=== PATIENT | male | born 1965 | race Caucasian/White ===

== ENCOUNTER 2016-09-23 04:51 | Observation (INO) ==
[2016-09-23] MEDS ORDERED: 0.9 % Sodium Chloride 500 ML IVC ONE (06:23)
[2016-09-23] MEDS ORDERED: *HR* Morphine 2 MG/ML SYRINGE IVP ONE (06:23)
[2016-09-23] MEDS ORDERED: Ondansetron 4 MG/2 ML VIAL IVP ONE (06:23)
[2016-09-23] MEDS ORDERED: Aspirin 81 MG TAB.CHEW PO ONE (06:23)
[2016-09-23 06:45] LABS: Basophils # 0.1 K/mcL (0.0-0.2); Basophils % 0.5 %; Eosinophils # 0.1 K/mcL (0.0-0.6); Eosinophils % 0.6 %; Hematocrit 45.7 % (37.5-50.1); Hemoglobin 15.8 g/dL (12.9-16.9); Immature Granulocytes % 0.4 % (0-4); Lymphocytes # 1.6 K/mcL (0.6-4.6); Lymphocytes % 13.9 %; Mean Corpuscular HGB Conc 34.6 g/dL (31.6-35.5); Mean Corpuscular Hemoglobin 30.7 pg (28.0-33.3); Mean Corpuscular Volume 88.9 fL (83.0-100.0); Mean Platelet Volume 12.6 fL (9.4-12.4); Monocytes # 0.7 K/mcL (0.0-1.3); Monocytes % 5.7 %; Platelet Count 176 K/mcL (140-400); Red Blood Count 5.14 M/mcL (4.19-5.50); Red Cell Distribution Width 12.7 % (11.5-14.5); Segmented Neutrophils % 78.9 %
[2016-09-23 06:50] LABS: Prothrombin Time 10.3 Seconds (9.4-12.1)
[2016-09-23 06:52] LABS: Activated Partial Thrombo Time 30.5 Seconds (26.0-36.0)
--- NOTE | 2016-09-23 06:55 | Emergency Department Note ---
Disposition Clinical Impression: Chest pain, Hypertension Disposition: Admitted As Inpatient Condition: Good Instructions: Chest Pain (ED) Referrals: NO,PCP [Primary Care Provider] - Forms: ED Satisfaction Letter Time of Disposition: 10:20 Chest Pain HPI - General Chief Complaint: ED Chest Pain Stated Complaint: Chest Pain Time Seen by Provider: 09/23/16 05:14 Source: patient Mode of arrival: private vehicle Limitations: no limitations Vital Signs Reviewed: Yes Nursing Notes Reviewed: Yes - History of Present Illness HPI Narrative: 51-year-old male presents to the emergency department complaining of left-sided chest pain. Patient states that this began approximately 2 hours prior to his arrival to the emergency department. Patient states the history of high blood pressure and high cholesterol. He denies any previous cardiac history. He denies any recent illnesses. He states that the pain began in his left chest and feels like a "pressure, like an elephant is sitting on my chest." He denies any dizziness or lightheadedness. He states that the pain began with light activity while he was at work. Pt complaint: chest pain Onset (ago): hour(s) (@ 0300) Duration: constant Onset: during exertion (minimal ) Pain Location: left chest Severity: severe Severity scale (1-10): 9 Quality: heaviness Pain Radiation: RUE Improves with: nothing Worsens with: exertion, inspiration Associated symptoms: Reports: dyspnea. Denies: nausea, vomiting, palpitations, leg swelling Treatments prior to arrival chest pain: none - Related Data Home Medications Medication Instructions Recorded Confirmed Lisinopril [Zestril] 5 mg PO DAILY 09/23/16 09/23/16 Allergies Allergy/AdvReac Type Severity Reaction Status Date / Time No Known Allergies Allergy Verified 09/23/16 08:56 All systems ED: reviewed and negative except as stated. Constitutional: Denies: fever, chills Cardiovascular: Reports: chest pain. Denies: palpitations, dyspnea on exertion , syncope Respiratory: Denies: dyspnea Gastrointestinal: Denies: abdominal pain, nausea, vomiting Musculoskeletal: Reports: myalgia. Denies: back pain, neck pain Integumentary: Denies: rash, abrasion, lesions Neurological: Denies: headache Psychiatric: Denies: anxiety, depression, suicidal thoughts, homicidal thoughts Chest Pain PMH - Past Medical History Medical history: Reports: no medical history Psychiatric history: Reports: no psych history - Social History Smoking Status: Current every day smoker Alcohol use: Reports: none Drug use: Reports: none Physical Exam - General Limitations: no limitations General appearance: alert, in distress - Head Head exam: atraumatic, normocephalic, normal inspection - Eye Eye exam: Present: normal appearance, PERRL - Neck Neck exam: Present: normal inspection, full ROM, trachea midline - Chest Chest inspection: Present: normal inspection, symmetric chest wall rise. Absent : tenderness - Respiratory Respiratory exam: Present: normal lung sounds bilaterally. Absent: respiratory distress, wheezes - Cardiovascular Cardiovascular exam: Present: regular rate, normal rhythm, normal heart sounds - Abdominal Exam Abdominal exam: Present: soft, Non-Tender, normal bowel sounds. Absent: distention, guarding, rebound - Extremities Exam Extremities exam: Present: normal inspection, full ROM, normal capillary refill. Absent: tenderness, pedal edema, calf tenderness - Back Exam Back exam: Present: normal inspection, full ROM. Absent: tenderness - Neurological Exam Neurological exam: Present: alert, oriented X3 - Psychiatric Psychiatric exam: Present: normal affect, normal mood - Skin Skin exam: Present: warm, dry, intact, normal color Course - Consultations Consultation #1: Discussed admission with Dr. Ramirez, she accepts patient for rule out ACS. Time: 09:00 Vital Signs Temperature 0 F L 09/23/16 05:00 Pulse Rate 97 09/23/16 05:00 Respiratory Rate 18 09/23/16 05:00 Blood Pressure 171/115 09/23/16 05:00 O2 Sat by Pulse Oximetry 97 09/23/16 05:00 Temperature 0 F L 09/23/16 05:00 Pulse Rate 83 09/23/16 08:44 Respiratory Rate 18 09/23/16 08:44 Blood Pressure 156/101 09/23/16 08:44 O2 Sat by Pulse Oximetry 100 09/23/16 08:44 Oxygen Delivery Oxygen Delivery Nasal Cannula Chest Pain - Lab Data Lab results reviewed: Yes I reviewed the patient's lab results. Result diagrams: 09/23/16 05:30 09/23/16 05:30 Lab Results 09/23/16 09/23/16 09/23/16 Range/Units 05:30 05:30 05:30 WBC (4.3-11.1) K/mcL RBC (4.19-5.50) M/mcL Hgb (12.9-16.9) g/dL Hct (37.5-50.1) % MCV (83.0-100.0) fL MCH (28.0-33.3) pg MCHC (31.6-35.5) g/dL RDW (11.5-14.5) % Plt Count (140-400) K/mcL MPV (9.4-12.4) fL Immature Gran % (0-4) % Seg Neutrophils % % Lymphocytes % % Monocytes % % Eosinophils % % Basophils % % Neutrophils # (1.6-8.9) K/mcL Lymphocytes # (0.6-4.6) K/mcL Monocytes # (0.0-1.3) K/mcL Eosinophils # (0.0-0.6) K/mcL Basophils # (0.0-0.2) K/mcL PT 10.3 (9.4-12.1) Seconds INR 1.0 APTT 30.5 (26.0-36.0) Seconds D-Dimer 414 (0-500) ng/mLFEU Sodium 141 (136-145) mEq/L Potassium 3.9 (3.5-4.5) mEq/L Chloride 107 (98-109) mEq/L Carbon Dioxide 26 (19-29) mEq/L BUN 12 (8-26) mg/dL Creatinine 1.12 (0.72-1.25) mg/dL Est GFR ( Amer) > 60 (> 60) Est GFR (Non-Af Amer) > 60 (> 60) BUN/Creatinine Ratio 11 (6-26) Glucose 118 H (70-99) mg/dL Calculated Osmolality 293 (280-300) Calcium 9.4 (8.6-10.8) mg/dL Total Bilirubin 0.5 (0.2-1.2) mg/dL Direct Bilirubin 0.2 (0.0-0.5) mg/dL Indirect Bilirubin 0.3 (0.0-1.2) mg/dL AST 21 (5-34) Units/L ALT 33 (0-55) Units/L Alkaline Phosphatase 95 (38-126) Units/L Troponin I (0-0.03) ng/mL B-Natriuretic Peptide 34 (0-100) pg/mL Serum Total Protein 7.1 (6.0-8.3) g/dL Albumin 3.8 (3.5-5.0) g/dL Globulin 3.3 (2.4-3.5) g/dL Albumin/Globulin Ratio 1.2 (1.1-2.2) Amylase 44 (25-125) Units/L Lipase 23 (8-78) Units/L 09/23/16 09/23/16 Range/Units 05:30 05:30 WBC 11.5 H (4.3-11.1) K/mcL RBC 5.14 (4.19-5.50) M/mcL Hgb 15.8 (12.9-16.9) g/dL Hct 45.7 (37.5-50.1) % MCV 88.9 (83.0-100.0) fL MCH 30.7 (28.0-33.3) pg MCHC 34.6 (31.6-35.5) g/dL RDW 12.7 (11.5-14.5) % Plt Count 176 (140-400) K/mcL MPV 12.6 H (9.4-12.4) fL Immature Gran % 0.4 (0-4) % Seg Neutrophils % 78.9 % Lymphocytes % 13.9 % Monocytes % 5.7 % Eosinophils % 0.6 % Basophils % 0.5 % Neutrophils # 9.0 H (1.6-8.9) K/mcL Lymphocytes # 1.6 (0.6-4.6) K/mcL Monocytes # 0.7 (0.0-1.3) K/mcL Eosinophils # 0.1 (0.0-0.6) K/mcL Basophils # 0.1 (0.0-0.2) K/mcL PT (9.4-12.1) Seconds INR APTT (26.0-36.0) Seconds D-Dimer (0-500) ng/mLFEU Sodium (136-145) mEq/L Potassium (3.5-4.5) mEq/L Chloride (98-109) mEq/L Carbon Dioxide (19-29) mEq/L BUN (8-26) mg/dL Creatinine (0.72-1.25) mg/dL Est GFR ( Amer) (> 60) Est GFR (Non-Af Amer) (> 60) BUN/Creatinine Ratio (6-26) Glucose (70-99) mg/dL Calculated Osmolality (280-300) Calcium (8.6-10.8) mg/dL Total Bilirubin (0.2-1.2) mg/dL Direct Bilirubin (0.0-0.5) mg/dL Indirect Bilirubin (0.0-1.2) mg/dL AST (5-34) Units/L ALT (0-55) Units/L Alkaline Phosphatase (38-126) Units/L Troponin I 0.01 (0-0.03) ng/mL B-Natriuretic Peptide (0-100) pg/mL Serum Total Protein (6.0-8.3) g/dL Albumin (3.5-5.0) g/dL Globulin (2.4-3.5) g/dL Albumin/Globulin Ratio (1.1-2.2) Amylase (25-125) Units/L Lipase (8-78) Units/L - Radiology Data Radiology results reviewed: Yes I reviewed the patient's radiology results. - EKG Data EKG attestation: Yes I reviewed and interpreted this EKG. EKG shows normal: sinus rhythm Rate: normal Rhythm: NSR [place]/QRS: normal Heart Score - Score History: Moderately Suspicious EKG: Normal Age: 45-65 Risk Factors: 1-2 risk factors Troponin: Less than normal limit HEART Score Total: 3 Attestation Statement - Attestation Attestation: For this encounter, I have reviewed the CLIENT MANAGER [employer]AR[employer] or PA documentation, treatment plan, and medical decision making; and I have had face to face time with this patient. 51-year-old male comes in and woke with chest pain and the left side going to the right. The patient does have risk factors hypertension age male. Patient has had no recent workup. Physical examination the lungs are clear cardiovascular exam regular rate and rhythm. EKG shows no acute change initial troponin is negative patient will need to be admitted for rule out VT.
[2016-09-23 06:56] LABS: Alanine Aminotransferase 33 Units/L (0-55); Albumin 3.8 g/dL (3.5-5.0); Albumin/Globulin Ratio 1.2 (1.1-2.2); Alkaline Phosphatase 95 Units/L (38-126); Amylase 44 Units/L (25-125); Aspartate Amino Transferase 21 Units/L (5-34); BUN/Creatinine Ratio 11 (6-26); Bilirubin,Direct 0.2 mg/dL (0.0-0.5); Bilirubin,Indirect 0.3 mg/dL (0.0-1.2); Bilirubin,Total 0.5 mg/dL (0.2-1.2); Blood Urea Nitrogen 12 mg/dL (8-26); Calcium 9.4 mg/dL (8.6-10.8); Carbon Dioxide 26 mEq/L (19-29); Chloride 107 mEq/L (98-109); Globulin 3.3 g/dL (2.4-3.5); Glucose 118 mg/dL (70-99); Lipase 23 Units/L (8-78); Osmolality,Calculated 293 (280-300); Potassium 3.9 mEq/L (3.5-4.5); Sodium 141 mEq/L (136-145); Total Protein 7.1 g/dL (6.0-8.3); eGFR For African Americans > 60 (> 60); eGFR For Non-African Americans > 60 (> 60)
[2016-09-23] MEDS ORDERED: *HR* Morphine 2 MG/ML SYRINGE IV ONE (07:32)
[2016-09-23] MEDS ORDERED: Ondansetron 4 MG/2 ML VIAL IV ONE (07:32)
[2016-09-23] MEDS ORDERED: *HR* HYDROmorphone (PF) 1 MG/ML SYRINGE IV ONE (07:58)
[2016-09-23] MEDS ORDERED: *HR* HYDROcodone/Acet 5/325 mg TABLET PO PRN (09:17)
[2016-09-23] MEDS ORDERED: Naloxone 0.4 MG/ML INJ IVP PRN (09:17)
[2016-09-23] MEDS ORDERED: Ondansetron 4 MG/2 ML VIAL IVP PRN (09:17)
[2016-09-23] MEDS ORDERED: Acetaminophen 325 MG TABLET PO PRN (09:17)
[2016-09-23] MEDS ORDERED: Nitroglycerin 0.4 MG TAB.SUBL SL PRN (09:22)
[2016-09-23] MEDS ORDERED: Nitroglycerin 25 MG/250 ML INFUS..BTL IVC SCH (10:45)
--- NOTE | 2016-09-23 10:52 | Internal Med History&Physical ---
Date of Encounter: 09/23/16 Time of Encounter: 10:47 Assessment and Plan (1) Unstable angina pectoris Current visit: Yes Status: Acute Patient with severe, typical cardiac chest pain on arrival to ER At time of review, still having chest pain with uncontrolled BP Already received ASA in ER EKG with <1mm Q wave in aVL, in 3 EKGs, no T wave or ST segment changes. Initial troponin negative Will continue ASA 81mg daily Lipitor 40mg qhs Will start on metoprolol Continue ACEI Nitro drip as at time of review, chest pain persists Continuous cardiac monitoring Trend troponins, Check A1C, Lipid panel NPO midnight fro stress test if troponins remain negative Will consult cardiology prn (2) Hypertensive urgency Current visit: Yes Status: Acute Medications as above Monitor closely Renal function WNL (3) Hyperlipidemia Current visit: Yes Status: Chronic Chronic Check Lipid panel LFT WNL Start Lipitor Qualifiers: Hyperlipidemia type: unspecified Qualified Code(s): E78.5 - Hyperlipidemia , unspecified Internal Medicine - H&P: HPI Chief complaint: Chest pain Admitted From: Home Plans for Post Hospital Care: Home History of present illness: Mr. Colón is a 51 year old male with PMH of HTN, HLD, Previous tobacco abuse, ( quit 5-6 months ago), presented to ER with complaints of 10/10 substernal chest pressure, non-radiating, with dyspnea. Chest pain started while he was driving to [facility] and was persistent till he presented to ER. He denies diaphoresis, nausea, dizziness, palpitations, reports dyspnes associated with chest pain. he also reported LUE numbness and difficulty moving his LUE during hest pain He denies history of trauma, orthopnea, PND, cough, . No abdominal symptoms No genitourinary symptoms Patient is not complaint with his home medications, or PCP visits. Patient with multiple risk factors for cardiac ischemia including age, gender, tobacco use, HTN and HLD. Will admit for management of unstable angina Past Med Surg Social Fam HX - Past Medical History Medical history: no medical history Psychiatric history: no psych history - Social History Smoking Status: Current every day smoker Smokeless Tobacco Status: No Alcohol use: none Drug use: none Internal Medicine - H&P: Meds Lisinopril [Zestril] 5 mg PO DAILY 09/23/16 [History] Allergies No Known Allergies Allergy (Verified 09/23/16 08:56) All Systems PM: A 10-system review of systems was performed and is negative for pertinent findings except as documented above in the HPI. - Constitutional Constitutional: as per HPI, no chills, no fever(s), no night sweats - EENT Eyes: as per HPI Ears: as per HPI Nose, mouth and throat: as per HPI - Breasts Breasts: as per HPI - Cardiovascular Cardiovascular ROS IM: as per HPI - Respiratory Respiratory: as per HPI - Gastrointestinal Gastrointestinal: as per HPI - Genitourinary Genitourinary ROS male: as per HPI - Musculoskeletal Musculoskeletal ROS IM: as per HPI - Integumentary Integumentary IM: as per HPI - Neurological Neurological ROS: as per HPI - Hematologic/Lymphatic Hematologic/Lymphatic: as per HPI - Constitutional Vitals: Temp Pulse Resp BP Pulse Ox 0 F L 83 16 156/108 100 09/23/16 05:00 09/23/16 08:44 09/23/16 10:38 09/23/16 10:38 09/23/16 08:44 General appearance: Present: mild distress, A&O X 3, pleasant, obese - Head Head exam: Present: atraumatic - Eye Eye exam: Present: PERRL, conjuntiva pink, sclera anicteric - ENT ENT exam: Present: mucous membranes moist - Neck Neck exam general surgery: Present: normal inspection - Respiratory Respiratory exam: Present: chest wall tenderness, CTAB. Absent: rales, rhonchi , wheezes - Cardiovascular Cardiovascular exam: Present: RRR, +S1, +S2. Absent: JVD, rubs, +S3, systolic murmur, tachycardia - GI/Abdominal GI/Abdominal exam: Present: normal bowel sounds, soft, no peritoneal signs. Absent: tenderness - Extremities Exam Extremities exam: Absent: pedal edema - Neurological Exam Neurological exam: Present: alert, oriented X3, no focal deficits. Absent: pronater drift, facial droop, speech deficit - Skin Skin exam: Present: dry Additional comments: Xerosis Internal Med - H&P Results - Labs CBC & Chem 7: 09/23/16 05:30 09/23/16 05:30 - EKG Data -: EKG Interpreted by Myself EKG shows normal: sinus rhythm, QRS complexes (Q wavws in aVL. Normal R wave progression, no ST segment elevation or depression, T waves upright) - EKG Data Prior EKG available for review: no Interpretation IM: other (Suspicion for ischemia) - Diagnostic Studies Chest x-ray Status: image reviewed by me (Cardiac silhoutte with possible RV enlargement. )
[2016-09-23 11:26] LABS: Hemoglobin A1C 4.7 %
[2016-09-23 11:57] LABS: Chol/HDL Ratio 5.1 (0-4.9)
--- NOTE | 2016-09-23 14:34 | Electrocardiograph Report ---
Test Date: 2016-09-23 Pat Name: Joselo Colón Department: 105 Room: 3B33 Gender: M Customer Associate: [facility] : 1965 Requested By: Matthew Colón Order Number: [id number] Reading MD: Troy Miguel MD Measurements Intervals [place] Rate: 96 P: 42 [place]: 176 QRS: -20 QRSD: 105 T: 30 QT: 352 QTc: 406 Interpretive Statements SINUS RHYTHM POSSIBLE SEPTAL MYOCARDIAL INFARCTION [30 ms Q WAVE IN V1/V2], OF INDETERMINATE AGE POSSIBLE LATERAL MYOCARDIAL INFARCTION [30 ms Q WAVE IN I/aVL/V5/V6], OF INDETERMINATE AGE Electronically Signed On 09-23-16 14:24:17 EST by Troy Miguel MD
[2016-09-23] MEDS: *HR* HYDROmorphone (PF) 1 MG/ML SYRINGE IVP PRN ×2 (17:11→21:22)
[2016-09-24 05:00] LABS: Basophils # 0.1 K/mcL (0.0-0.2); Basophils % 0.6 %; Eosinophils # 0.1 K/mcL (0.0-0.6); Hematocrit 40.5 % (37.5-50.1); Immature Granulocytes % 0.4 % (0-4); Lymphocytes # 1.6 K/mcL (0.6-4.6); Mean Corpuscular HGB Conc 34.3 g/dL (31.6-35.5); Mean Corpuscular Hemoglobin 30.3 pg (28.0-33.3); Mean Corpuscular Volume 88.4 fL (83.0-100.0); Mean Platelet Volume 12.3 fL (9.4-12.4); Monocytes # 0.8 K/mcL (0.0-1.3); Monocytes % 10.6 %; Neutrophils # 5.2 K/mcL (1.6-8.9); Platelet Count 126 K/mcL (140-400); Red Blood Count 4.58 M/mcL (4.19-5.50); Red Cell Distribution Width 12.8 % (11.5-14.5); Segmented Neutrophils % 67.4 %
[2016-09-24 05:02] LABS: Hemoglobin 13.9 g/dL (12.9-16.9)
[2016-09-24 05:15] LABS: BUN/Creatinine Ratio 14 (6-26); Blood Urea Nitrogen 14 mg/dL (8-26); Calcium 8.7 mg/dL (8.6-10.8); Carbon Dioxide 21 mEq/L (19-29); Chloride 109 mEq/L (98-109); Glucose 91 mg/dL (70-99); Osmolality,Calculated 286 (280-300); Potassium 3.7 mEq/L (3.5-4.5); Sodium 138 mEq/L (136-145); eGFR For African Americans > 60 (> 60); eGFR For Non-African Americans > 60 (> 60)
[2016-09-24] MEDS ORDERED: *HR* Enoxaparin 40 MG/0.4 ML SYRINGE SQ SCH (06:00)
[2016-09-24] MEDS ORDERED: Aspirin Enteric Coated 81 MG Tablet PO SCH (09:00)
--- NOTE | 2016-09-24 09:44 | ECHO - Doppler Report ---
Echocardiogram Name: Joselo Colón Date of Study: 09/23/2016 Date: 1965 Ht: 69.0 in Medical Record#: [id number] Age: 51 Wt: 227.0 lb Gender: Male BSA: 2.18 Order #: [id number] Location: [facility] Room #: 3B33 Reading Physician: Tamara Kyle DO Yard Demurrage Clerk: Lakesha Bates Ordering Physician: Agapito Ramirez MD Primary Physician: Luis A English DO Indications: Chest pain Impressions: LVEF 55%. Normal left ventricular size and systolic function. Normal diastolic function of the left ventricle. Normal right ventricular size and function. No significant valvular dysfunction. No pulmonary hypertension. Left Ventricular Wall Motion: Rest Echo Findings All wall segments showed normal motion. Findings: Study Quality * Technically adequate exam. ECG Findings * Normal sinus rhythm. Left Ventricle * Normal LV chamber size, wall thickness and function. * Normal left ventricular diastolic function. * LVEF 55%. Left Atrium * Normal left atrial size. Mitral Valve * Normal mitral valve structure. * No mitral stenosis. * No mitral regurgitation. Aortic Valve * No aortic regurgitation. * Aortic valve not well visualized. * No aortic stenosis. Tricuspid Valve * Tricuspid valve not well visualized. * Trace tricuspid regurgitation. Pulmonic Valve * Pulmonic valve is not well visualized. * No pulmonic stenosis. * No pulmonic regurgitation. Pulmonary Artery * Pulmonary artery not well visualized. Right Ventricle * Normal right ventricular structure and function. Right Atrium * Normal right atrial size. Interatrial Septum * Interatrial septum not well evaluated. Pericardium * There is no pericardial effusion present. IVC * The IVC is not dilated. Aorta * Normally sized aortic root. History Hypertension Hypercholesteremia Measurements: BP: 122/ 81 2D Normal Values IVSd: .63 cm 0.6 - 1.0 cm LVIDd: 6.06 cm 3.7 - 5.6 cm LVPWd: 1.03 cm 0.6 - 1.1 cm LVIDs: 3.09 cm 1.5 - 3.6 cm AO: 2.70 cm < 4.0 cm LA: 3.50 cm 2.0 - 4.0cm %FS: 49.00 cm >25 % LA volume: 63 Mitral Valve Peak E:1.03 m/sec Peak A:.70 m/sec E/A Ratio:1.5 Peak E' Lat Huey:10.4 cm/s Peak E' Med Huey:8.08 cm/s E/E' Lat Ratio:9.9 E/E' Med Ratio:12.7 Tricuspid Valve TV Regurg Peak Grad: 21.00mmHg TV Regurg Peak Huey: 2.29m/sec Updated by Tamara Kyle on 09/24/2016 9:39:59 AM electronically signed on 09/24/2016 9:40:27 AM with status of Final Wall Motion [place]: 1=Normal, 2=Hypokinesis, 3=Akinesis, 4=Dyskinesis, 5=Aneurysmal, 6=Hyperkinetic, X=Not Visualized (Blank)=Missing
--- NOTE | 2016-09-24 10:20 | Nuclear Medicine Stress Report ---
Exercise Nuclear Stress Name: Joselo Colón Date of Study: 09/24/2016 Date: 1965 Ht: 70.0 in Medical Record#: [id number] Age: 51 Wt: 226.0 lb Gender: Male Order #: [id number] Location: [facility] IP Room: [employer] [facility] [employer] [facility] Supervising Provider: Tacho Gong CNP Reading Physician: Tamara Kyle DO Ordering Physician: Lilly Dutta CNP Primary Care Physician: None Stress Technologist: Staci Haider AUXILIARY POWER EQUIPMENT OPERATOR, CCT Pulmonary Function Technician: Arpit Bowen Indications: Chest Pain Impression: Perfusion imaging was negative for ischemia or infarct. Exercise ECG was negative for ischemia. Occasional PVCs. Gated EF = 69%. History: Hypertension History of Smoking Stress Test Summary: Stress Test Type: Treadmill Protocol: Collin Baseline Information: Initial Heart Rate: 70 Blood Pressure: 128/88 Stress Information: Stress Time: 8 min 15 sec Test Terminated Due to (primary): As per protocol Maximum Blood Pressure: 194/94 Maximum Heart Rate: 151 Percent Maximum Heart Rate Achieved: 89 Double Product: 18199 METS Reached: 10.1 Symptoms: Fatigue, Shortness of breath, Shortness of breath Nuclear Summary: SPECT myocardial perfusion imaging using Tc99m Sestamibi given intravenously was performed at rest and following cardiac stress testing. The resting images were obtained following initial dose of 11.6 mCi. Following stress an additional dose of 35.2 mCi was given at peak exercise or 30 seconds post regadenoson infusion. Medication Given: Time Medication Dose Units Route Findings: Stress Note * Resting ECG demonstrated normal sinus rhythm with normal appearing ECG. * Exercise ECG is negative for ischemia. * Occasional PVCs noted during stress. * Patient had no chest pain during stress. * The exercise capacity was good. Hemodynamic responses * Normal hemodynamic responses to exercise. Study Quality * Study quality is good. Gated EF % * Gated EF = 69%. Left Ventricle * The left ventricle is not dilated. TID * No evidence of transient ischemic dilatation. Lung Uptake * There is no evidence of increase lung uptake. NORMALS * Normal wall motion. * Normal segmental perfusion in stress. * Normal Segmental Perfusion in rest. Updated by Tamara Kyle on 09/24/2016 10:15:41 AM electronically signed on 09/24/2016 10:16:23 AM with status of Final
[2016-09-24 11:54] VITALS: BP 126/73
--- NOTE | 2016-09-24 13:33 | Electrocardiograph Report ---
[facility] Test Date: 2016-09-23 Pat Name: Joselo Colón Department: 102 Room: 3B33 Gender: M Senior Ssis Developer: [employer] : 1965 Requested By: Lilly Dutta Order Number: [id number] Reading MD: Yas Rand Measurements Intervals [place] Rate: 88 P: 42 [place]: 177 QRS: -23 QRSD: 117 T: 1 QT: 369 QTc: 414 Interpretive Statements SINUS RHYTHM Electronically Signed On 09-24-16 13:32:34 EST by Yas Rand
--- NOTE | 2016-09-24 13:36 | Discharge Summary ---
Date of Encounter: 09/24/16 Time of Encounter: 13:00 - Discharge Diagnosis (1) Unstable angina pectoris Priority: Primary Status: Ruled-out Comments: Chest x-ray negative. Troponins negative 3. Stress test negative for ischemia or infarct. Echocardiogram unremarkable with ejection fraction of 55% . On examination, chest pain is reproducible and worsened with movement consistent with musculoskeletal etiology. Recommend follow-up outpatient. ACS ruled out. (2) Costochondral chest pain Priority: Primary Status: Suspected (3) Hypertensive urgency Priority: Primary Status: Resolved (4) Hypertension Priority: Secondary Status: Chronic Comments: Normotensive after metoprolol added to his regimen. Recommend follow-up outpatient and daily blood pressure checks at home. (5) Hyperlipidemia Priority: Secondary Status: Chronic Comments: Mildly abnormal lipid panel, we will initiate low-dose statin given his risk factors. Recommend low-cholesterol diet and follow-up with primary care provider. Qualifiers: Hyperlipidemia type: unspecified Qualified Code(s): E78.5 - Hyperlipidemia , unspecified (6) Noncompliance Priority: Secondary Status: Chronic Comments: Patient readily admits to not taking his medications and not following the correct diet. Attempted education, patient not receptive. - Discharge Medications Prescriptions: Aspirin Enteric Coated [Aspirin EC] 81 mg PO DAILY #30 tablet. Atorvastatin [Lipitor] 40 mg PO HS #30 tablet Lisinopril [Zestril] 10 mg PO DAILY #30 tablet Metoprolol [Lopressor] 25 mg PO BID #60 tablet Home Medications: Aspirin Enteric Coated [Aspirin EC] 81 mg PO DAILY #30 tablet. 09/24/16 [Rx] Atorvastatin [Lipitor] 40 mg PO HS #30 tablet 09/24/16 [Rx] Lisinopril [Zestril] 10 mg PO DAILY #30 tablet 09/24/16 [Rx] Metoprolol [Lopressor] 25 mg PO BID #60 tablet 09/24/16 [Rx] Allergies/Adverse Reactions: Allergies No Known Allergies Allergy (Verified 09/23/16 08:56) Procedures/tests Complete & Pending: Procedures Performed prior 72 hours Category Date Time Status ECG 12 lead ECG [ECG] Routine Y 09/23/16 12:00 Completed Date of admission: 09/23/16 10:24 Primary care physician: PCP NO Discharging clinician: Lilly Dutta Anticipated date of discharge: 09/24/16 - Patient Status Disposition: Home, Self-Care Condition: Good Functional capacity at discharge: independent ambulation Overall status at discharge: patient is back to baseline - Discharge Instructions Follow Up With: Luis A English DO [Resident] - Additional Instructions: Follow-up with primary care provider in one to 2 weeks. Check blood pressure daily at home, keep a log. - Diet and Activity Activity: increase activity as tolerated Diet: low fat, low cholesterol, low salt diet Hospital course: Mr. Colón is a 51 year old male with past medical history of hypertension and hyperlipidemia anemia, previous tobacco abuse stopped 5-6 months prior to presentation, noncompliance. Patient presented to the emergency room chief complaint substernally located chest pressure that did not radiate with dyspnea. Patient stating pain started when he was driving from [place] to [place] [employer] and the pain was persistent until he presented to the emergency department. Patient denied diaphoresis, nausea, dizziness, palpitations. Patient also reported left upper extremity and then numbness and difficulty moving his left upper extremity. Workup in the emergency department unremarkable. Chest x-ray negative. Patient was admitted to the hospitalist service for further evaluation and management. Troponins negative 3. Exercise stress test negative. Echocardiogram unremarkable with ejection fraction of 55%. ACS ruled out. On examination, patient's chest pain is reproducible with palpation worsened with movement consistent with musculoskeletal etiology. Regarding risk factor modification, patient readily admits to being noncompliant with his cholesterol and hypertensive medication. Initial blood pressures were markedly elevated with initial blood pressure 171/ 115. His home dose of lisinopril 5 mg increased to 10 mg and metoprolol was added to his regimen. Baby aspirin and a statin was also added to his regimen for further risk factor stratification. Discharged home in stable condition with close outpatient follow-up recommended. ITS Impressions Chest X-Ray 09/23/16 06:24 IMPRESSION: Negative portable chest. D/ / Davon Camp MD / Davon Camp MD Interpreting Provider: Davon Camp MD Exercise nuclear stress test impression: Perfusion imaging was negative for ischemia or infarct. Exercise ECG was negative for ischemia. Occasional PVCs. Gated ejection fraction equals 69%. Echocardiogram impressions: LVEF 55%. Normal left ventricular size and systolic function. Normal diastolic function of the left ventricle. Normal right ventricular size and function. No significant valvular dysfunction. No pulmonary hypertension. - Time Spent with Patient Total time spent providing and/or coordinating discharge services: - Constitutional Vitals: Temp Pulse Resp BP Pulse Ox 98.2 F 62 16 126/73 96 09/24/16 11:53 09/24/16 11:53 09/24/16 11:53 09/24/16 11:53 09/24/16 11:53 General appearance: Present: A&O X 3, pleasant, no acute distress, obese, answers questions appropriately - Head Head exam: Present: atraumatic, normocephalic - Eye Eye exam: Present: PERRL, conjuntiva pink, sclera anicteric Pupils: Present: PERRL - Neck Neck exam general surgery: Present: supple, trachea midline. Absent: lymphadenopathy - Respiratory Respiratory exam: Present: chest wall tenderness, CTAB. Absent: accessory muscle use, rales, respiratory distress, rhonchi, wheezes - Cardiovascular Cardiovascular exam: Present: RRR, +S1, +S2. Absent: diastolic murmur, gallop, rubs, systolic murmur - GI/Abdominal GI/Abdominal exam: Present: distended, normal bowel sounds, soft, no peritoneal signs. Absent: tenderness - Extremities Exam Extremities exam: Present: warm, radial pulses palpable and symetrical. Absent : calf tenderness, cyanotic, pedal edema - Neurological Exam Neurological exam: Present: alert, CN II-XII intact, normal gait, oriented X3, no focal deficits, strengths equal and symetr throughout. Absent: pronater drift, facial droop, speech deficit - Skin Skin exam: Present: dry, intact, normal color, warm
== END 2016-09-24 14:57 | disposition home or self-care (01) ==
LOC: 3BNU 04:51 → EMEROO 04:51 → 3BNU 11:48
PROVIDERS: ADMIT Nurse Practitioner Family; ATTEND Nurse Practitioner Family

== ENCOUNTER 2021-02-04 12:21 | Observation (INO) ==
[2021-02-04] MEDS ORDERED: 0.9 % Sodium Chloride 1,000 ML IVC ONE (13:19)
[2021-02-04 13:36] LABS: Basophils # 0.1 K/mcL (0.0-0.2); Eosinophils # 0.1 K/mcL (0.0-0.6); Eosinophils % 2.1 %; Hemoglobin 13.4 g/dL (12.9-16.9); Immature Granulocytes % 0.3 % (0-4); Lymphocytes # 1.2 K/mcL (0.6-4.6); Lymphocytes % 19.3 %; Mean Corpuscular HGB Conc 33.5 g/dL (31.6-35.5); Mean Corpuscular Volume 92.6 fL (83.0-100.0); Mean Platelet Volume 12.2 fL (9.4-12.4); Monocytes # 0.4 K/mcL (0.0-1.3); Neutrophils # 4.5 K/mcL (1.6-8.9); Platelet Count 184 K/mcL (140-400); Red Blood Count 4.32 M/mcL (4.19-5.50); Red Cell Distribution Width 12.7 % (11.5-14.5); Segmented Neutrophils % 71.3 %; White Blood Count 6.3 K/mcL (4.3-11.1)
[2021-02-04 13:56] LABS: INR 1.1; Prothrombin Time 12.5 Seconds (9.4-12.1)
[2021-02-04 14:04] LABS: BUN/Creatinine Ratio 12 (6-26); Blood Urea Nitrogen 16 mg/dL (6-20); Calcium 8.4 mg/dL (8.6-10.3); Carbon Dioxide 25 mEq/L (23-29); Chloride 108 mEq/L (98-107); Glucose 138 mg/dL (70-105); Osmolality,Calculated 295 (280-300); Potassium 3.7 mEq/L (3.5-5.1); Sodium 141 mEq/L (136-145); Troponin I < 0.03 ng/mL (< 0.04); eGFR For African Americans > 60 (> 60); eGFR For Non-African Americans 55 (> 60)
[2021-02-04] MEDS ORDERED: Ondansetron 4 MG/2 ML VIAL IVP PRN (18:08)
[2021-02-04] MEDS ORDERED: Naloxone 0.4 MG/ML INJ IVP PRN (18:08)
[2021-02-04] MEDS ORDERED: *HR* HYDROcodone/Acet 5/325 mg TABLET PO PRN (18:08)
[2021-02-04] MEDS ORDERED: Perflutren Lipid Microsphere 1.3 ML in 0.9 % Sodium Chloride 8.7 ML IVP PRN (18:12)
[2021-02-04] MEDS ORDERED: Ringers Solution, Lactated 1,000 ML IVC SCH (18:15)
[2021-02-04 18:32] LABS: Ethanol < 10 mg/dL (Less than 10)
[2021-02-05 01:04] LABS: Basophils # 0.1 K/mcL (0.0-0.2); Basophils % 0.7 %; Eosinophils # 0.1 K/mcL (0.0-0.6); Hematocrit 35.8 % (37.5-50.1); Hemoglobin 12.1 g/dL (12.9-16.9); Immature Granulocytes % 0.3 % (0-4); Lymphocytes # 1.5 K/mcL (0.6-4.6); Lymphocytes % 21.4 %; Mean Corpuscular HGB Conc 33.8 g/dL (31.6-35.5); Mean Corpuscular Volume 91.8 fL (83.0-100.0); Monocytes # 0.4 K/mcL (0.0-1.3); Monocytes % 5.7 %; Neutrophils # 4.9 K/mcL (1.6-8.9); Platelet Count 153 K/mcL (140-400); Red Cell Distribution Width 12.9 % (11.5-14.5); Segmented Neutrophils % 69.9 %
[2021-02-05 01:23] LABS: BUN/Creatinine Ratio 12 (6-26); Blood Urea Nitrogen 14 mg/dL (6-20); Calcium 8.1 mg/dL (8.6-10.3); Carbon Dioxide 24 mEq/L (23-29); Chloride 108 mEq/L (98-107); Glucose 167 mg/dL (70-105); Magnesium 2.1 mg/dL (1.6-2.6); Osmolality,Calculated 292 (280-300); Phosphorous 2.1 mg/dL (2.7-4.5); Potassium 3.1 mEq/L (3.5-5.1); Sodium 139 mEq/L (136-145); eGFR For African Americans > 60 (> 60); eGFR For Non-African Americans > 60 (> 60)
[2021-02-05 01:24] LABS: Chol/HDL Ratio 5.2 (0-4.9)
[2021-02-05] MEDS ORDERED: *HR* Heparin 5,000 UNIT/ML VIAL SQ SCH (06:00)
[2021-02-05] MEDS: Aspirin Enteric Coated 81 MG Tablet PO SCH (08:15)
[2021-02-05 14:12] LABS: Estimated Average Glucose 103 mg/dl; Hemoglobin A1C 5.2 %
[2021-02-05] MEDS: BuPROPion SR (12 HR) 150 MG TABLET PO SCH (19:36)
[2021-02-06] MEDS ORDERED: Regadenoson 0.4 MG/5 ML SYRINGE IVP ONE (06:29)
[2021-02-06 06:54] LABS: Hematocrit 39.7 % (37.5-50.1); Hemoglobin 13.3 g/dL (12.9-16.9); Mean Corpuscular HGB Conc 33.5 g/dL (31.6-35.5); Mean Corpuscular Hemoglobin 31.1 pg (28.0-33.3); Mean Corpuscular Volume 92.8 fL (83.0-100.0); Mean Platelet Volume 12.2 fL (9.4-12.4); Platelet Count 155 K/mcL (140-400); Red Blood Count 4.28 M/mcL (4.19-5.50); Red Cell Distribution Width 12.8 % (11.5-14.5); White Blood Count 6.2 K/mcL (4.3-11.1)
[2021-02-06 07:22] LABS: BUN/Creatinine Ratio 16 (6-26); Blood Urea Nitrogen 17 mg/dL (6-20); Calcium 8.7 mg/dL (8.6-10.3); Carbon Dioxide 24 mEq/L (23-29); Chloride 110 mEq/L (98-107); Glucose 96 mg/dL (70-105); Magnesium 1.9 mg/dL (1.6-2.6); Osmolality,Calculated 293 (280-300); Phosphorous 3.2 mg/dL (2.7-4.5); Potassium 3.7 mEq/L (3.5-5.1); Sodium 141 mEq/L (136-145); eGFR For African Americans > 60 (> 60); eGFR For Non-African Americans > 60 (> 60)
[2021-02-06] MEDS: BuPROPion SR (12 HR) 150 MG TABLET PO SCH (08:39)
[2021-02-06] MEDS: Aspirin Enteric Coated 81 MG Tablet PO SCH (08:39)
[2021-02-06 14:32] VITALS: BP 154/89
== END 2021-02-06 17:58 | disposition home or self-care (01) ==
LOC: EMEROOARM 12:21 → 3BNU 12:21 → SUATTDRO 19:22 → 3BNU 20:29
PROVIDERS: ADMIT Internal Medicine; ATTEND Registered Nurse